=== PATIENT | female | born 1990 | race Caucasian/White ===

== ENCOUNTER 2019-04-02 01:24 | Emergency (ER) | payer SELFPAY ==
[~2019-04-02] VITALS: Ht 165.1 cm; Wt 106.6 kg
[2019-04-02 01:32] VITALS: BP 154/90
--- NOTE | 2019-04-02 01:38 | NUR ---
flu swab collected and sent to lab.
--- NOTE | 2019-04-02 01:39 | NUR ---
PT TAKEN TO BED 12
[2019-04-02] MEDS ORDERED: NACL 0.9% 1,000 ML IV SCH (01:50)
--- NOTE | 2019-04-02 01:50 | NUR ---
29 Y/O FEMALE PRESENTS TO ED, C/O FLU LIKE SYMPTOMS. PT STATES HAVING FEVER AND CHILLS FOR THE PAST 2 WEEKS. PT HAS NAUSEA THAT STARTED YESTERDAY. PT C/O OF HEADACHE AND GENERAL BODY ACHES 9/10 PAIN SCALE. TAKES MOTRIN FOR PAIN BUT WITH LITTLE OR NO RELIEF. PT AFEBRILE DURING TRIAGE. NO SOB/CHEST PAIN. PT AT STABLE CONDITION. ERMD AWARE. WILL CONTINUE TO MONITOR.
--- NOTE | 2019-04-02 01:50 | NUR ---
Dr. López examining patient.
[2019-04-02 02:33] LABS: BASOPHILS % (AUTO) 0.3 % (0.0-2.0); HEMATOCRIT 43.1 % (36-48); HEMOGLOBIN 14.4 g/dL (12.0-16.0); LYMPHOCYTES # (AUTO) 1.3 K/uL (2.5-16.5); LYMPHOCYTES % (AUTO) 12.9 % (20.5-51.1); MEAN CORPUSCULAR HEMOGLOBIN 28 pg (27-31); MEAN CORPUSCULAR HGB CONC 34 g/dL (33-37); MEAN CORPUSCULAR VOLUME 84.6 fL (80-94); MONOCYTES # (AUTO) 0.7 K/uL (0.8-1.0); NEUTROPHILS # (AUTO) 8.3 K/uL (1.8-7.7); NEUTROPHILS % (AUTO) 79.8 % (42.2-75.2); PLATELET COUNT (AUTO) 293 K/uL (140-450); RED CELL DISTRIBUTION WIDTH 13.3 % (11.6-13.7); WHITE BLOOD COUNT (AUTO) 10.4 K/uL (4.8-10.8)
[2019-04-02 02:52] LABS: CARBON DIOXIDE 25.5 mmol/L (21-32); POTASSIUM 3.5 mmol/L (3.5-5.1)
[2019-04-02 02:56] LABS: ALBUMIN 3.6 g/dL (3.4-5.0); TOTAL BILIRUBIN 0.5 mg/dL (0.0-1.0)
[2019-04-02] MEDS ORDERED: NACL 0.9% 2,000 ML IV ONE (03:05)
[2019-04-02] MEDS ORDERED: KETOROLAC 30 MG/ML VIAL IVP ONE (04:10)
[2019-04-02 04:37] VITALS: BP 153/77
--- NOTE | 2019-04-02 04:37 | NUR ---
PT DISCHARGED WITH PAPERWORK. RX MOTRIN. EDUCATED PT REGARDING MEDICATION AND S/E. EDUCATED PT REGARDING D/C DIAGNOSIS AND INSTRUCTIONS. PT VERBALIZED UNDERSTANDING OF TEACHING. TOLD PT TO FOLLOW UP WITH PCP AND WHEN TO RETURN TO ED. PT AT STABLE CONDITION. ALL QUESTIONS ANSWERED.
== END 2019-04-02 04:37 | disposition home or self-care (01) ==
LOC: MED 01:24
DX: J02.9 Acute pharyngitis, unspecified (principal); I10 Essential (primary) hypertension; R00.0 Tachycardia, unspecified
CPT/HCPCS: 36415; 71045; 80053; 83605; 85025; 87040; 87804; 96361; 96374; 99284; J1885; J7030; Q0092